=== PATIENT | female | born 1960 ===

== ENCOUNTER 2017-12-20 09:19 | Outpatient (CLI) | payer OTHER | END 2017-12-20 09:21 | disposition home or self-care (01) | LOC: SONOGRAMA 09:19 | DX: E04.1 Nontoxic single thyroid nodule (principal) ==

== ENCOUNTER 2023-09-24 13:14 | Outpatient (CLI) | payer OTHER | END 2023-09-24 13:16 | disposition home or self-care (01) | LOC: SONOGRAMA 13:14 | PROVIDERS: ATTEND Pathology Anatomic Pathology | DX: D34 Benign neoplasm of thyroid gland (principal); E07.89 Other specified disorders of thyroid; D44.0 Neoplasm of uncertain behavior of thyroid gland; E03.8 Other specified hypothyroidism ==